=== PATIENT | female | born 1985 | race Two or more races ===

== ENCOUNTER 2018-02-17 12:30 | Inpatient (IN) | payer OTHER ==
[2018-02-17] MEDS: ELECTROLYTE-148 SOLN 1,000 ML IV SCH (13:30)
[2018-02-17 13:39] VITALS: BMI 32.9
[2018-02-17 13:46] LABS: BASO % 0.7 % (0-2.0); EOS % 0.9 % (0-4.5); HEMATOCRIT 38.5 % (32.4-45.2); HEMOGLOBIN 13.1 GM/dL (10.7-15.3); MCH 31.5 pg (25.7-33.7); MEAN CELL VOLUME 92.7 fl (80-96); MEAN PLT VOLUME 7.8 fl (7.5-11.1); MONO % 8.4 % (3.8-10.2); PLATELET COUNT 187 K/MM3 (134-434); RBC 4.15 M/mm3 (3.60-5.2); WHITE BLOOD COUNT 5.8 K/mm3 (4.0-10.0)
[2018-02-17 13:59] LABS: INR 0.95 (0.82-1.09); PROTHROMBIN TIME (PATIENT) 10.7 SEC (9.7-13.0)
[2018-02-17 14:02] LABS: ACTIVATED PTT 26.8 SECONDS (26.9-34.4)
[2018-02-17 14:08] LABS: ANION GAP 11 (8-16); BLOOD UREA NITROGEN 10 mg/dL (7-18); CALCIUM 8.2 mg/dL (8.5-10.1); CHLORIDE 107 mmol/L (98-107); CO2 23 mmol/L (21-32); CREATININE 0.5 mg/dL (0.55-1.02); GLUCOSE,RANDOM 64 mg/dL (74-106); POTASSIUM 4.4 mmol/L (3.5-5.1); SODIUM 141 mmol/L (136-145)
[2018-02-17] MEDS ORDERED: TUBERCULIN PPD 5 TU/0.1ML SYRINGE (IN PATIENT USE ONLY) ID ONE (14:30)
[2018-02-17] MEDS ORDERED: DINOPROSTONE 10 MG VAGINAL SUPPOSITORY VG ONE (14:39)
[2018-02-17] MEDS ORDERED: PROMETHAZINE HCL 25 MG/1 ML VIAL IVPUSH ONE (14:54)
[2018-02-17] MEDS ORDERED: BUTORPHANOL TARTRATE 1 MG/ML VIAL IVPB ONE (14:54)
--- NOTE | 2018-02-17 14:54 | HP ---
Past Medical History - Primary Care Physician PCP:: Elin Sims - Admission Chief Complaint: Here for labor induction History of Present Illness: 33 y/o at 40 weeks gestation here for IOL 2/2 GDMA1 and oligohydramnios found on ultrasound today. complicated by obesity and A1GDM. Pt had routine ultrasound today showing JADYN 4.3. Pt then sent up to L&D for monitoring and to resume with scheduled IOL. Pt with no current complaints. Followed with MFM throughout , GBS negative. History Source: Patient, Medical Record Limitations to Obtaining History: No Limitations - Past Medical History Cardiovascular: No: HTN, [place] Gastrointestinal: No: GERD Reproductive: No: Ectopic , Endometriosis, PID ...: 2 ...Para: 0 ...Spon : 1 ...EDC by Thaio: 02/17/18 Infectious Disease: No: HIV, MRSA, STD's Psych: No: Anxiety, Bipolar, Depression Endocrine: Yes: Diabetes Mellitus (gestational - diet controlled) - Past Surgical History Hx Myomectomy: No Hx Transabdominal Cerclage: No - Smoking History Smoking history: Never smoked Have you smoked in the past 12 months: No - Alcohol/Substance Use Hx Alcohol Use: No History of Substance Use: reports: None - Social History ADL: Independent History of Recent Travel: No Home Medications - Allergies Allergies/Adverse Reactions: Allergies Allergy/AdvReac Type Severity Reaction Status Date / Time No Known Allergies Allergy Unverified 02/17/18 13:22 - Home Medications Home Medications: Ambulatory Orders Vitamins (Sjr) - 1 tab PO DAILY 02/17/18 Review of Systems - Review of Systems Constitutional: reports: No Symptoms Eyes: reports: No Symptoms HENT: reports: No Symptoms Neck: reports: No Symptoms Cardiovascular: reports: No Symptoms Respiratory: reports: No Symptoms Gastrointestinal: reports: No Symptoms Genitourinary: reports: No Symptoms Breasts: reports: No Symptoms Reported Musculoskeletal: reports: No Symptoms Integumentary: reports: No Symptoms Neurological: reports: No Symptoms Endocrine: reports: No Symptoms Hematology/Lymphatic: reports: No Symptoms Psychiatric: reports: No Symptoms Physical Exam - Maternity Vital Signs: Vital Signs Temperature 98.0 F 02/17/18 14:41 Pulse Rate 81 02/17/18 14:41 Respiratory Rate 20 02/17/18 14:41 Blood Pressure 102/64 04/23/18 14:41 O2 Sat by Pulse Oximetry (%) Constitutional: Yes: Well Nourished, No Distress, Calm Eyes: Yes: Conjunctiva Clear, EOM Intact HENT: Yes: Atraumatic, Normocephalic Neck: Yes: Trachea Midline Cardiovascular: Yes: Regular Rate and Rhythm Breast(s): Yes: WNL - Abdominal Exam/OB Number of Fetuses: Single Presentation: Vertex Regularity: Irregular Intensity: Unaware Monitor Mode: External Category: I Accelerations: Uniform Decelerations: None - Vaginal Exam/OB Vaginal Bleediing: No Speculum Exam: No Dilatation (cm): 0 Effacement (%): 0 Amniotic Membrane Status: Intact Presentation: Vertex/Position - Physical Exam Extremities: Yes: WNL Psychiatric: Yes: Alert, Oriented - Labs Lab Results: CBC, BMP 02/17/18 13:43 02/17/18 13:43 Hemorrhage Risk Assessment - Risk Factors Medium Risk Factors: Yes: None High Risk Factors: Yes: None Risk Score: 1 Risk Level: Medium Risk Problem List - Problems (1) Gestational diabetes mellitus (GDM) Code(s): O24.419 - GESTATIONAL DIABETES MELLITUS IN , UNSP CONTROL (2) Obesity (BMI 30.0-34.9) Code(s): E66.9 - OBESITY, UNSPECIFIED (3) Oligohydramnios antepartum Code(s): O41.00X0 - OLIGOHYDRAMNIOS, UNSP TRIMESTER, NOT APPLICABLE OR UNSP Assessment/Plan Oligohydramnios A1GDM SIUP at term for IOL cervidil placed f/u 12 hours for reassessment
[2018-02-17] MEDS ORDERED: DEXTROSE 5%-LACTATED RINGERS 1,000 ML IV SCH (15:00)
[2018-02-18] MEDS: ELECTROLYTE-148 SOLN 1,000 ML IV SCH ×2 (05:45→17:45)
[2018-02-18] MEDS ORDERED: TUBERCULIN PPD 5 TU/0.1ML SYRINGE (IN PATIENT USE ONLY) ID ONE (08:30)
--- NOTE | 2018-02-18 09:29 | LDN ---
Oxytocin Pre-Use Checklist Date and Time completed: 02/18/18 0928 Physician order on chart: Yes Current history and physical on chart: Yes Indication for induction is documented: Yes record on chart: Yes Estimated weight within past week (clinical or sono): Less than 4250 grams in a diabetic woman Gestational age is documented: Yes Consent signed: Yes Physician with privileges: is aware of the induction, is readily available, is documented in the medical record Status of the cervix is assessed and documented: Yes Presentation is assessed and documented: Yes
[2018-02-18] MEDS ORDERED: OXYTOCIN 30 UNITS in 0.9% NS 30 UNIT/500 ML INFUS.BAG IVPB SCH (09:30)
[2018-02-18] MEDS ORDERED: OXYTOCIN 15 UNITS/ LR 250 ML 250 ML IVPB SCH (09:30)
[2018-02-18] MEDS: PRENATAL VITAMINS W/ FOLIC ACID TABLET (FP) PO SCH (10:00)
[2018-02-18] MEDS ORDERED: CITRIC ACID/SODIUM CITRATE 30 ML UNIT-DOSE CUP PO ONE (22:00)
[2018-02-18] MEDS ORDERED: ELECTROLYTE-148 SOLN 500 ML IV ONE ×2 (22:30→23:45)
[2018-02-18] MEDS ORDERED: PROPOFOL 20 ML ONE (22:33)
[2018-02-18] MEDS ORDERED: SUCCINYLCHOLINE CHLORIDE 200 MG/10 ML VIAL ONE (22:33)
[2018-02-18] MEDS ORDERED: LIDOCAINE HCL/PF 2% SDV 5ML VIAL ONE (22:34)
[2018-02-18] MEDS ORDERED: ceFAZolin SODIUM 1 GM VIAL ONE (22:35)
--- NOTE | 2018-02-19 00:14 | PN ---
Ante-Partal Exam - Subjective Subjective: Pt desires CS due to lack of dilation Vital Signs: Vital Signs Temperature 97.9 F 02/18/18 23:00 Pulse Rate 73 02/18/18 23:00 Respiratory Rate 18 02/18/18 23:00 Blood Pressure 95/51 02/18/18 23:00 O2 Sat by Pulse Oximetry (%) Bleeding: No Headache: No Visual changes: No Right upper quadrant pain: No - Contractions Contractions: Yes Regularity: Regular Intensity: Mild/Mod Monitor Mode: External - Exam during Labor Variability: Moderate Category: I Monitor Accelerations: Present Monitor Decelerations: None Exam: Vaginal Dilatation (cm): 2 Amniotic Membrane Status: Intact Presentation: Vertex - Intrapartum Hemorrhage Risk Risk Score: 0 Risk Level: Low Risk - Assessment/Plan Assessment/Plan: Failed induction Oligo Gestational DM Plan Section
[2018-02-19] MEDS ORDERED: WITCH HAZEL 50% (TUCKS) 40 PAD/JAR PAD TP PRN (00:15)
[2018-02-19] MEDS ORDERED: IBUPROFEN 800 MG/8 ML IJ IVPB PRN (00:15)
[2018-02-19] MEDS ORDERED: METHYLERGONOVINE MALEATE 0.2 MG/1 ML AMP IM PRN (00:15)
[2018-02-19] MEDS ORDERED: ROCURONIUM BROMIDE 50 MG/5 ML VIAL ONE (00:25)
[2018-02-19] MEDS ORDERED: ONDANSETRON 4 MG/2 ML VIAL IVPUSH PRN (00:29)
[2018-02-19] MEDS ORDERED: OXYTOCIN 10 UNITS/ML VIAL ONE (00:58)
[2018-02-19] MEDS ORDERED: DEXAMETHASONE SOD PHOSPHATE 4 MG/1 ML VIAL ONE (01:04)
[2018-02-19] MEDS ORDERED: KETOROLAC TROMETHAMINE 30 MG/1 ML VIAL ONE (01:06)
--- NOTE | 2018-02-19 01:25 | OP ---
Operative Note - Note: Operative Date: 02/19/18 Pre-Operative Diagnosis: failed induction. gestational DM. OLigohydramnious Operation: Primary low transverse Section Findings: LIve female nuchal cord x 1 Post-Operative Diagnosis: Same as Pre-op Surgeon: Elin Sims [employer]aceutical Sales: Juliana Devlin Anesthesia: General Estimated Blood Loss (mls): 600 Operative Report Dictated: Yes
[2018-02-19 01:57] LABS: ARTERIAL BLOOD GAS BASE EXCESS -3.9 meq/l (-2-2); ARTERIAL BLOOD GAS PCO2 53.6 mmHg (35-45); ARTERIAL BLOOD GAS pH 7.26 (7.35-7.45); VENOUS PC02 51.6 mmHg (38-52); VENOUS PH 7.29 (7.32-7.42); VENOUS PO2 34.9 mmHg (28-48)
[2018-02-19 01:59] LABS: ARTERIAL BLD GAS O2 SATURATION 27.2 % (90-98.9); ARTERIAL BLOOD GAS PO2 17.5 mmHg (80-100)
[2018-02-19] MEDS ORDERED: OXYTOCIN 20 UNITS in 0.9% NS 20 UNIT/1,000 ML INFUS.BAG IV ONE (02:15)
[2018-02-19] MEDS: OXYTOCIN 20 UNITS in 0.9% NS 20 UNIT/1,000 ML INFUS.BAG IV SCH (02:15)
[2018-02-19] MEDS ORDERED: IBUPROFEN 800 MG/8 ML IJ IVPB ONE (02:24)
[2018-02-19] MEDS ORDERED: PCA PUMP KEY 1 EACH EACH ONE ×2 (03:32→04:02)
[2018-02-19] MEDS: HYDROmorphone *PCA* 10MG/50ML DISP.SYRIN PCA SCH (03:49)
--- NOTE | 2018-02-19 07:14 | OP ---
DATE OF OPERATION: 02/19/2018 PREOPERATIVE DIAGNOSES: Failed induction, oligohydramnios, gestational diabetes. OPERATION: Primary low transverse section. POSTOPERATIVE DIAGNOSIS: Live female infant. SURGEON: Lalo Sims MD ANESTHESIA: General. ANESTHESIOLOGIST: Juan Miguel Bo MD FINDINGS: Live female delivered, nuchal cord x1. PROCEDURE: Patient was taken to the operating room, placed in supine position and prepped and draped in the usual sterile fashion. General anesthesia was established. A Pfannenstiel skin incision was made with a scalpel. Cautery was then used to go through the layers of the abdominal wall to the level of the fascia. Fascia was cut in the midline and cautery was then used to open the fascia in a smiling fashion. Uday was then used to bluntly and sharply dissect the rectus muscle off the fascia. Muscle split in the midline. Peritoneal cavity was then entered and carried up and downward. Bladder retractor was then placed. Vesicouterine reflection was then entered. Bladder was bluntly dissected out of the operative field. Scalpel was then used to make a low transverse uterine incision. Incision was carried up using bandage scissors. A live female was delivered in OT position. Nose and mouth suction performed. Shoulders delivered without difficulty. Nuchal cord was reduced. Cord blood obtained. DeLee cord clamping was done. Cord blood pH sampling was taken. Cord was clamped and cut and the was handed to dev technical mgr. Placenta was manually extracted from the uterus. Uterus was exteriorized and cleaned with clean lap pads. Uterine incision then closed using 0 Vicryl suture, 1st layer continuous locking, 2nd layer imbricating the1st layer. Hemostasis was achieved and uterus interiorized. Abdominal cavity cleaned with clean lap pads. Peritoneum closed using 0 Biosyn suture. Fascia was then closed using 0 Vicryl suture in 2 parts. Subcutaneous was then approximated using 0 Biosyn suture. Skin was then closed using 3-0 Vicryl in subcuticular fashion. Wound was washed and dressed. Patient had tolerated procedure well. Estimated blood loss 600 mL. Pack count correct. Peritoneal sweep was done. LALO SIMS M.D. [id number]
[2018-02-19] MEDS: PRENATAL VITAMINS W/ FOLIC ACID TABLET (FP) PO SCH (09:51)
[2018-02-20] MEDS ORDERED: BISACODYL 10 MG SUPP.RECT RC PRN (00:15)
[2018-02-20] MEDS: HYDROmorphone *PCA* 10MG/50ML DISP.SYRIN PCA SCH (00:30)
[2018-02-20] MEDS ORDERED: oxyCODONE HCL 5 MG TABLET PO PRN ×2 (01:25)
[2018-02-20] MEDS: OXYTOCIN 20 UNITS in 0.9% NS 20 UNIT/1,000 ML INFUS.BAG IV SCH (02:20)
[2018-02-20 07:25] LABS: BASO % 0.3 % (0-2.0); EOS % 0.6 % (0-4.5); HEMATOCRIT 30.6 % (32.4-45.2); HEMOGLOBIN 10.6 GM/dL (10.7-15.3); LYMPH % 13.4 % (8-40); MCH 32.6 pg (25.7-33.7); MCHC 34.6 g/dl (32.0-36.0); MEAN CELL VOLUME 94.3 fl (80-96); MEAN PLT VOLUME 8.3 fl (7.5-11.1); MONO % 6.8 % (3.8-10.2); NEUT % 78.9 % (42.8-82.8); PLATELET COUNT 158 K/MM3 (134-434); RBC 3.24 M/mm3 (3.60-5.2); RDW 14.4 % (11.6-15.6)
[2018-02-20] MEDS ORDERED: ACETAMINOPHEN 1000 MG/100 ML VIAL (NON FORMULARY) IVPB PRN (08:46)
--- NOTE | 2018-02-20 08:49 | PN ---
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 Clears are started. A/P D/C TOOL HONING MACHINE SET UP OPERATOR, can be given oral and parentral meds. Mirtha Evangelista MD.
[2018-02-20] MEDS ORDERED: PCA PUMP KEY 1 EACH EACH ONE (08:50)
[2018-02-20] MEDS: PRENATAL VITAMINS W/ FOLIC ACID TABLET (FP) PO SCH (09:12)
[2018-02-20] MEDS: IBUPROFEN 600 MG TABLET (FP) PO PRN ×2 (15:02→23:56)
[2018-02-20] MEDS: SIMETHICONE 80 MG TAB.CHEW (FP) PO PRN (23:55)
--- NOTE | 2018-02-21 00:05 | PN ---
Post Progress Note - Subjective Subjective: 33 yo Para 1 status post primary , seen and evaluated. Doing well. Post Day: 1 Type of Delivery: Primary C/S Vital Signs: Vital Signs Temperature 98.3 F 02/20/18 22:00 Pulse Rate 78 02/20/18 22:00 Respiratory Rate 18 02/20/18 22:00 Blood Pressure 106/66 02/20/18 22:00 O2 Sat by Pulse Oximetry (%) 96 02/19/18 21:00 Breast Exam: Yes: Soft Uterus: Yes: Other (Incision pain) Incision: Yes: Dressing dry and intact Abdomen/GI: Yes: Abdomen soft Lochia: Yes: Rubra Lochia, amount: Small Extremities: Yes: Calves non-tender Activity: Ambulating - Labs Labs: CBC WBC 9.0 K/mm3 (4.0-10.0) D 02/20/18 06:40 RBC 3.24 M/mm3 (3.60-5.2) L D 02/20/18 06:40 Hgb 10.6 GM/dL (10.7-15.3) L D 02/20/18 06:40 Hct 30.6 % (32.4-45.2) L D 02/20/18 06:40 MCV 94.3 fl (80-96) 02/20/18 06:40 MCH 32.6 pg (25.7-33.7) 02/20/18 06:40 MCHC 34.6 g/dl (32.0-36.0) 02/20/18 06:40 RDW 14.4 % (11.6-15.6) 02/20/18 06:40 Plt Count 158 K/MM3 (134-434) 02/20/18 06:40 MPV 8.3 fl (7.5-11.1) 02/20/18 06:40 Neutrophils % 78.9 % (42.8-82.8) 02/20/18 06:40 Lymphocytes % 13.4 % (8-40) D 02/20/18 06:40 Monocytes % 6.8 % (3.8-10.2) 02/20/18 06:40 Eosinophils % 0.6 % (0-4.5) 02/20/18 06:40 Basophils % 0.3 % (0-2.0) 02/20/18 06:40 Problem List - Problems (1) Status post primary low transverse section Code(s): Z98.891 - HISTORY OF UTERINE SCAR FROM PREVIOUS SURGERY Assessment/Plan Status post primary Low Transverse Stable Continue routine post op care
--- NOTE | 2018-02-21 09:42 | PN ---
Post Progress Note - Subjective Subjective: Pt feeling well. Tolerating regular diet, ambulating, voiding and passing flatus. Pain controlled with PO pain meds. No CP/SOB/F/C/SEGAL. is going well per pt. VB mininal. Type of Delivery: Primary C/S Vital Signs: Vital Signs Temperature 98.3 F 02/20/18 22:00 Pulse Rate 78 02/20/18 22:00 Respiratory Rate 18 02/20/18 22:00 Blood Pressure 106/66 02/20/18 22:00 O2 Sat by Pulse Oximetry (%) 96 02/19/18 21:00 Uterus: Yes: Fundus Firm Incision: Yes: Dressing dry and intact Abdomen/GI: Yes: Abdomen soft, Tender (appropriate post surgical tenderness), Passing flatus. No: Abdominal Distention Lochia: Yes: Rubra Lochia, amount: Small Perineum: Yes: Intact Activity: Ambulating - Labs Labs: CBC WBC 9.0 K/mm3 (4.0-10.0) D 02/20/18 06:40 RBC 3.24 M/mm3 (3.60-5.2) L D 02/20/18 06:40 Hgb 10.6 GM/dL (10.7-15.3) L D 02/20/18 06:40 Hct 30.6 % (32.4-45.2) L D 02/20/18 06:40 MCV 94.3 fl (80-96) 02/20/18 06:40 MCH 32.6 pg (25.7-33.7) 02/20/18 06:40 MCHC 34.6 g/dl (32.0-36.0) 02/20/18 06:40 RDW 14.4 % (11.6-15.6) 02/20/18 06:40 Plt Count 158 K/MM3 (134-434) 02/20/18 06:40 MPV 8.3 fl (7.5-11.1) 02/20/18 06:40 Neutrophils % 78.9 % (42.8-82.8) 02/20/18 06:40 Lymphocytes % 13.4 % (8-40) D 02/20/18 06:40 Monocytes % 6.8 % (3.8-10.2) 02/20/18 06:40 Eosinophils % 0.6 % (0-4.5) 02/20/18 06:40 Basophils % 0.3 % (0-2.0) 02/20/18 06:40 Problem List - Problems (1) Gestational diabetes mellitus (GDM) Code(s): O24.419 - GESTATIONAL DIABETES MELLITUS IN , UNSP CONTROL (2) Obesity (BMI 30.0-34.9) Code(s): E66.9 - OBESITY, UNSPECIFIED (3) Oligohydramnios antepartum Code(s): O41.00X0 - OLIGOHYDRAMNIOS, UNSP TRIMESTER, NOT APPLICABLE OR UNSP (4) delivery delivered Code(s): O82 - ENCOUNTER FOR DELIVERY WITHOUT INDICATION Assessment/Plan 33 y/o POD#2 s/p primary delivery for failure to dilate - AFVSS - Hgb 10.6, pt stable - regular diet, PO pain meds, ambulation - plan for discharge home in a.m. 02/22 if stable
[2018-02-21] MEDS: PRENATAL VITAMINS W/ FOLIC ACID TABLET (FP) PO SCH (10:00)
--- NOTE | 2018-02-21 10:11 | DS ---
Physical Exam-SUPERVISOR CELL ROOM Vital Signs: Vital Signs Temperature 98.3 F 02/20/18 22:00 Pulse Rate 78 02/20/18 22:00 Respiratory Rate 18 02/20/18 22:00 Blood Pressure 106/66 02/20/18 22:00 O2 Sat by Pulse Oximetry (%) 96 02/19/18 21:00 Constitutional: Yes: Well Nourished, No Distress, Calm Eyes: Yes: Conjunctiva Clear, EOM Intact HENT: Yes: Atraumatic, Normocephalic Neck: Yes: Trachea Midline Respiratory: Yes: WNL Gastrointestinal: Yes: Soft ....Post : Yes: Uterus firm, Uterus non-tender Wound/Incision: Yes: Clean/Dry, Well Approximated Neurological: Yes: Alert, Oriented Psychiatric: Yes: Alert, Oriented Labs: CBC, BMP 02/20/18 06:40 02/17/18 13:43 Delivery - Delivery Section: Primary, Low Flap Transverse Type of Anesthesia: General Episiotomy/Laceration: None EBL (cc): 650 Delivery, Single - Stages of Labor Date 1st Stage Initiatied: 02/18/18 Time 1st Stage Initiated: 01:00 Date of Delivery: 02/19/18 Time of Delivery: 00:54 Time Placenta Delivered: 00:55 - Condition of Infant Squad Leader/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 - 1 Minute Total Score: 9 5 Minutes Total Score: 9 - [place] Feeding Plan Initial Plan: Elected not to breastfeed exclusively throughout hospitalization Discharge Summary Reason For Visit: LABOR INDUCTION Current Active Problems delivery delivered (Acute) Gestational diabetes mellitus (GDM) (Acute) Obesity (BMI 30.0-34.9) (Acute) Oligohydramnios antepartum (Acute) Status post primary low transverse section (Acute) Procedures: Principal: Primary delivery. Hospital Course: Pt admitted for inductin of labor then underwent primary delivery for failure to dilate. Pt underwent uncomplicated post /post op recovery and was discharged home on post operative day 3. Condition: Good - Instructions Diet, Activity, Other Instructions: Physical activity Resume your normal everyday activity as tolerated no heavy lifting or exercise until seen by your surgeon. You may walk unlimited sarah of and climb stairs. You may resume driving the car when you feel safe and comfortable behind the wheel. No sexual activity as instructed. Wound care If you have a bandage, leave it on, and keep dry for 48-72 hours. After that time discard the outer bandage. If they are tapes on the skin under the out of bandage leave them in place. They will peel off in the next 7 to 10 days. Do Not Peel them off. You may shower the day after surgery. If there are tapes present on the skin, you may shower over them. Diet There are no dietary restrictions. Eat healthy, high-fiber foods. Drink 6 to 8 glasses of liquid each day. This will assist in keeping your bowels are regular. Pain management You may take Tylenol or acetaminophen or Ibuprofen (for example, Motrin, Advil etc.) from my pain prescription medication is ordered should be taken as prescribed for moderate to severe pain. Call MD for any of the following: Severe pain not relieved by medication Fever of 101 or higher Excessive bleeding or drainage on dressing Inability to urinate return to office in 1 week for incision check and 6 weeks for check. call office for appointment. Referrals: Elin Sims MD [Staff Physician] - 1 Week (for incision check) Disposition: HOME - Home Medications Comprehensive Discharge Medication List: Ambulatory Orders Vitamins (Sjr) - 1 tab PO DAILY 02/17/18 Ibuprofen [Motrin -] 600 mg PO QID PRN #28 tablet 02/21/18 Oxycodone HCl/Acetaminophen [Percocet 5-325 mg Tablet -] 1 tab PO Q4H #30 tablet MDD 6 02/21/18
[2018-02-21] MEDS: IBUPROFEN 600 MG TABLET (FP) PO PRN (16:36)
[2018-02-21] MEDS: ACETAMINOPHEN 325 MG TABLET (FP) PO PRN (16:37)
[2018-02-21] MEDS: SIMETHICONE 80 MG TAB.CHEW (FP) PO PRN (16:38)
[2018-02-21 18:40] LABS: URINE APPEARANCE SLCLOUDY; URINE BILIRUBIN NEGATIVE (<2.0 mg/dL); URINE BLOOD 3+ (NEGATIVE); URINE COLOR LTYELLOW; URINE GLUCOSE (UA) NEGATIVE (NEGATIVE); URINE KETONE NEGATIVE (NEGATIVE); URINE NITRITE NEGATIVE (NEGATIVE); URINE PROTEIN NEGATIVE (NEGATIVE); URINE UROBILINOGEN NEGATIVE mg/dL (0.2-1.0)
[2018-02-21 19:13] LABS: URINE LEUK ESTERASE 3+ (NEGATIVE)
[2018-02-21 19:16] LABS: EPI CELLS FEW /HPF (FEW); URINE BACTERIA RARE /hpf (NONE SEEN)
[2018-02-22] MEDS: SIMETHICONE 80 MG TAB.CHEW (FP) PO PRN ×2 (02:13→09:11)
[2018-02-22] MEDS: IBUPROFEN 600 MG TABLET (FP) PO PRN ×2 (02:13→09:11)
[2018-02-22 08:19] VITALS: BP 102/64; PULSE 76; TEMP 98.6
[2018-02-22] MEDS: ACETAMINOPHEN 325 MG TABLET (FP) PO PRN (09:12)
[2018-02-22] MEDS: PRENATAL VITAMINS W/ FOLIC ACID TABLET (FP) PO SCH (09:12)
[2018-02-22 09:35] LABS: BASO % 0.3 % (0-2.0); EOS % 1.1 % (0-4.5); HEMATOCRIT 32.9 % (32.4-45.2); HEMOGLOBIN 11.6 GM/dL (10.7-15.3); LYMPH % 12.6 % (8-40); MCH 32.8 pg (25.7-33.7); MCHC 35.2 g/dl (32.0-36.0); MEAN CELL VOLUME 93.4 fl (80-96); MEAN PLT VOLUME 8.2 fl (7.5-11.1); MONO % 4.6 % (3.8-10.2); NEUT % 81.4 % (42.8-82.8); PLATELET COUNT 213 K/MM3 (134-434); RBC 3.52 M/mm3 (3.60-5.2); RDW 14.2 % (11.6-15.6)
--- NOTE | 2018-02-22 10:09 | PN ---
Post Progress Note - Subjective Subjective: Pt feeling well, no complaints. Desires to go home. Type of Delivery: Primary C/S Vital Signs: Vital Signs Temperature 98.6 F 02/22/18 08:18 Pulse Rate 76 02/22/18 08:18 Respiratory Rate 20 02/22/18 08:18 Blood Pressure 102/64 02/22/18 08:18 O2 Sat by Pulse Oximetry (%) 96 02/19/18 21:00 Breast Exam: Yes: Soft Uterus: Yes: Fundus Firm, Fundus below umbilicus Incision: Yes: Sutures intact Abdomen/GI: Yes: Abdomen soft, Passing flatus, Tolerating PO. No: Abdominal Distention Lochia, amount: Small Extremities: Yes: Calves non-tender Perineum: Yes: Intact Activity: Ambulating - Labs Labs: CBC WBC 9.0 K/mm3 (4.0-10.0) 02/22/18 08:25 RBC 3.52 M/mm3 (3.60-5.2) L 02/22/18 08:25 Hgb 11.6 GM/dL (10.7-15.3) 02/22/18 08:25 Hct 32.9 % (32.4-45.2) 02/22/18 08:25 MCV 93.4 fl (80-96) 02/22/18 08:25 MCH 32.8 pg (25.7-33.7) 02/22/18 08:25 MCHC 35.2 g/dl (32.0-36.0) 02/22/18 08:25 RDW 14.2 % (11.6-15.6) 02/22/18 08:25 Plt Count 213 K/MM3 (134-434) D 02/22/18 08:25 MPV 8.2 fl (7.5-11.1) 02/22/18 08:25 Neutrophils % 81.4 % (42.8-82.8) 02/22/18 08:25 Lymphocytes % 12.6 % (8-40) 02/22/18 08:25 Monocytes % 4.6 % (3.8-10.2) 02/22/18 08:25 Eosinophils % 1.1 % (0-4.5) D 02/22/18 08:25 Basophils % 0.3 % (0-2.0) 02/22/18 08:25 Problem List - Problems (1) Gestational diabetes mellitus (GDM) Code(s): O24.419 - GESTATIONAL DIABETES MELLITUS IN , UNSP CONTROL (2) Obesity (BMI 30.0-34.9) Code(s): E66.9 - OBESITY, UNSPECIFIED (3) Oligohydramnios antepartum Code(s): O41.00X0 - OLIGOHYDRAMNIOS, UNSP TRIMESTER, NOT APPLICABLE OR UNSP (4) delivery delivered Code(s): O82 - ENCOUNTER FOR DELIVERY WITHOUT INDICATION Assessment/Plan 33 y/o POD#3 s/p primary delivery for failure to dilate - AFVSS - Hgb 11.6, pt stable - regular diet, PO pain meds, ambulation - ok for discharge home
--- NOTE | 2018-02-25 10:00 | PATH ---
Surgical Pathology Report Patient Name: KIMBERLY GODINEZ Med. Rec. 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 Specimen(s) Received PLACENTA Clinical History , 40.1 weeks gestation GD-diet controlled, oligo, obesity Final Diagnosis PLACENTA, SECTION: 458 g THIRD TRIMESTER PLACENTA WITH TRIVASCULAR UMBILICAL CORD AND UNREMARKABLE PLACENTAL MEMBRANES. Electronically Signed Rufina Mederos M.D. Gross Description The specimen is received fresh labeled placenta and is a 458 gram, 16.0 x 15.0 x 3.0 cm. placenta with attached membranes and umbilical cord. The attached membranes are barron, translucent with focal opacities and insert marginally. The umbilical cord measures 14.5 cm. in length and averages 1.1 cm. in diameter. The cord inserts eccentrically, 4 cm. to the nearest margin. No true knots or strictures are identified. Cut surface of the umbilical cord reveals 3 vessels. The surface is potter-blue with minimal fibrin deposition and appropriate caliber vessels. The maternal surface is red-brown with focal defects. Sectioning reveals red-brown, spongy parenchyma. No lesions are identified. [employer] Consultant sections are submitted in three cassettes as follows: 1- membrane rolls and umbilical cord; 2-3- full thickness sections of placenta. 02/22/2018 saudi02/22/2018
== END 2018-02-22 12:30 | disposition home or self-care (01) | DRG 540 ==
LOC: JDEL 12:30 → JLDR 12:31 → J3W 02-19 03:20
PROVIDERS: ADMIT Obstetrics & Gynecology; ATTEND Obstetrics & Gynecology
PROC: 10D00Z1 Extraction of Products of Conception, Low, Open Approach (ICD-10-PCS; principal; 2018-02-19)
DX: O48.0 Post-term pregnancy (principal); O24.429 Gestational diabetes mellitus in childbirth, unspecified control; O99.214 Obesity complicating childbirth; E66.8 Other obesity; O61.0 Failed medical induction of labor; O41.03X0 Oligohydramnios, third trimester, not applicable or unspecified; Z3A.40 40 weeks gestation of pregnancy; Z37.0 Single live birth; Z68.32 Body mass index [BMI] 32.0-32.9, adult; Z3A.00 Weeks of gestation of pregnancy not specified
CPT/HCPCS: 36415; 36600; 80048; 81003; 81015; 82803; 85025; 85610; 85730; 86593; 86850; 86900; 86901; 87086; 87186; 88307-TC

== ENCOUNTER 2020-05-18 16:13 | Emergency (ER) | payer OTHER ==
--- NOTE | 2020-05-18 16:31 | PDOC ---
History of Present Illness - General Chief Complaint: Abscess Boil Stated Complaint: RT BREAST PAIN Time Seen by Provider: 05/18/20 16:23 - History of Present Illness Initial Comments: 05/18/20 16:28 35-year-old female without comorbidities presents for a swollen area under her right axilla x1 week without systemic symptoms. Past History - Medical History Allergies/Adverse Reactions: Allergies Allergy/AdvReac Type Severity Reaction Status Date / Time No Known Allergies Allergy Unverified 05/18/20 16:19 Home Medications: Ambulatory Orders Vitamins (Sjr) - 1 tab PO DAILY 02/17/18 Ibuprofen [Motrin -] 600 mg PO QID PRN #28 tablet 02/21/18 Oxycodone HCl/Acetaminophen [Percocet 5-325 mg Tablet -] 1 tab PO Q4H #30 tablet MDD 6 02/21/18 Asthma: No Cancer: No Cardiac Disorders: No COPD: No Diabetes: No HTN: No Seizures: No Thyroid Disease: No - Surgical History Cholecystectomy: Yes - Psycho-Social/Smoking History Smoking History: Never smoked Have you smoked in the past 12 months: No - Substance Abuse Hx (Audit-C & DAST Scrn) How often the patient has a drink containing alcohol: Never Score: In Men: 4 or > Positive; In Women: 3 or > Positive: 0 Screen Result (Pos requires Nsg. Audit-10AR): Negative Review of Systems - Review of Systems Constitutional: No: Fever Integumentary: Yes: Pruritus *Physical Exam - Vital Signs Last Vital Signs Temp Pulse Resp BP Pulse Ox 98.1 F 58 L 18 111/72 99 05/18/20 16:17 05/18/20 16:17 05/18/20 16:17 05/18/20 16:17 05/18/20 16:17 - Physical Exam 05/18/20 16:28 Right axilla skin color and temperature are normal there is no erythema fluctuance induration or tenderness. No palpable masses. Certainly no palpable fluctuance. Right upper extremity neurovascular intact without gross sensorimotor deficits. Medical Decision Making - Medical Decision Making 05/18/20 16:29 This may represent a forming abscess her examination is benign. I will have her follow-up with general surgery this also may be hydroadenitis. I have reviewed the pathophysiology with the patient. They are in agreement with the treatment plan all questions were answered to their satisfaction. Understanding for follow-up without fail was also conveyed to the patient. Again they are in agreement. Discharge - Discharge Information Problems reviewed: Yes Clinical Impression/Diagnosis: Hydradenitis Condition: Stable Disposition: HOME - Admission No - Follow up/Referral Referrals: Rufina Champagne [Primary Care Provider] - Shar Flores MD [Staff Physician] - - Patient Discharge Instructions Additional Instructions: Return to the emergency room for further issues and without fail follow-up with general surgery in 1 to 2 days for further evaluation and treatment options. - Post Discharge Activity
[2020-05-18 16:52] VITALS: BP 111/72; PULSE 58; TEMP 98.1; BMI 32.3
== END 2020-05-18 17:04 | disposition home or self-care (01) ==
LOC: JER 16:13 → JERFT 16:13
DX: L73.2 Hidradenitis suppurativa (principal)
CPT/HCPCS: 99282-25

== ENCOUNTER 2021-12-08 16:59 | Emergency (ER) | payer OTHER ==
[2021-12-08 17:11] VITALS: BP 102/62; PULSE 89; TEMP 97.8; BMI 31.3
[2021-12-08] MEDS ORDERED: IBUPROFEN 400 MG TABLET (FP) PO ONE ×2 (17:32→17:34)
== END 2021-12-08 17:45 | disposition home or self-care (01) ==
LOC: FER 16:59
DX: R22.31 Localized swelling, mass and lump, right upper limb (principal)
CPT/HCPCS: 99283-25

== ENCOUNTER 2023-03-30 16:54 | Emergency (ER) | payer OTHER ==
[2023-03-30 17:12] VITALS: BP 115/76; PULSE 71; RESP 18; TEMP 98.5; BMI 30.2
== END 2023-03-30 19:54 | disposition home or self-care (01) ==
LOC: FER 16:54
DX: R10.2 Pelvic and perineal pain (principal); N76.89 Other specified inflammation of vagina and vulva; L02.214 Cutaneous abscess of groin
CPT/HCPCS: 99283-25